=== PATIENT | male | born 1995 | race African-American/Black ===

== ENCOUNTER 2016-12-23 03:14 | Emergency (ER) | payer OTHER ==
[2016-12-23 03:38] VITALS: BP 161/90; PULSE 80; TEMP 98.9; BMI 48.4
[2016-12-23] MEDS ORDERED: SODIUM CHLORIDE 1,000 ML IV STA (04:17)
--- NOTE | 2016-12-23 04:24 | PDOC ---
History of Present Illness - General Chief Complaint: Weakness Stated Complaint: WEAKNESS, BLOOD SUGAR PROBLEM Time Seen by Provider: 12/23/16 04:04 History Source: Patient, Parent(s) (Father) Exam Limitations: No Limitations - History of Present Illness Initial Comments: 12/23/16 04:19 21yo Male patient w/ PmHx: DM, Asthma, Sleep apnea, presents to ED c/o weakness , mood changes for past couple months. Patient states he has not seen his PCP or checked his blood sugar in months. Patient father states patient is depressed , and has not left the house in months, he states patient is scared of social settings. Denies thoughts or verbalization of wanting to harm himself or anyone else. Past History - Travel Traveled outside of the country in the last 30 days: No Close contact w/someone who was outside of country & ill: No - Past Medical History Allergies/Adverse Reactions: Allergies Allergy/AdvReac Type Severity Reaction Status Date / Time No Known Allergies Allergy Verified 12/23/16 03:36 Home Medications: Ambulatory Orders Metformin HCl [Glucophage] 500 mg PO BID #60 tablet 07/06/16 Asthma: Yes Diabetes: Yes - Immunization History Immunization Up to Date: Yes - Psycho/Social/Smoking Cessation Hx Anxiety: No Suicidal Ideation: No Smoking History: Never smoked Have you smoked in the past 12 months: No Information on smoking cessation initiated: No Hx Alcohol Use: No Drug/Substance Use Hx: No Review of Systems - Review of Systems Able to Perform ROS?: Yes Is the patient limited Wallisian proficient: No Constitutional: No: Chills, Fever Respiratory: No: Cough, Shortness of Breath, Stridor, Wheezing Cardiac (ROS): No: Chest Pain, Edema, Lightheadedness, Palpitations, Syncope, Chest Tightness ABD/GI: No: Constipated, Diarrhea, Nausea, Poor Appetite, Poor Fluid Intake, Vomiting, Indigestion : No: Burning, Dysuria, Discharge, Frequency, Flank Pain, Hematuria, Pain Musculoskeletal: No: Back Pain, Muscle Pain, Muscle Weakness, Neck Pain Integumentary: No: Dryness, Erythema, Sweating Neurological: Yes: Weakness. No: Headache, Numbness, Paresthesia, Seizure, Tingling, Tremors, Unsteady Gait, Ataxia, Dizziness Psychiatric: Yes: Anxiety, Depression, Stressors, Mood Swings All Other Systems: Reviewed and Negative *Physical Exam - Vital Signs Last Vital Signs Temp Pulse Resp BP Pulse Ox 98.9 F 80 20 161/90 99 12/23/16 03:36 12/23/16 03:36 12/23/16 03:36 12/23/16 03:36 12/23/16 03:36 - Physical Exam General Appearance: Yes: Nourished, Appropriately Dressed. No: Apparent Distress, Mild Distress, Moderate Distress, Severe Distress Neck: positive: Trachea midline, Normal Thyroid, Supple. negative: Stridor, Lymphadenopathy (R), Lymphadenopathy (L) Respiratory/Chest: positive: Lungs Clear, Normal Breath Sounds. negative: Respiratory Distress, Accessory Muscle Use, Labored Respiration, Rapid RR Cardiovascular: positive: Regular Rhythm, Regular Rate. negative: Edema, JVD, Murmur Gastrointestinal/Abdominal: positive: Normal Bowel Sounds, Soft. negative: Distended, Guarding, Rebound, Tenderness Musculoskeletal: positive: Normal Inspection. negative: CVA Tenderness Extremity: positive: Normal Capillary Refill, Normal Inspection, Normal Range of Motion Integumentary: positive: Normal Color, Dry, Warm Neurologic: positive: parts product analyst II-XII NML intact, Fully Oriented, Alert, Normal Mood/ Affect, Normal Response, Motor Strength 5/5 ED Treatment Course - LABORATORY CBC & Chemistry Diagram: 12/23/16 04:31 12/23/16 04:31 *DC/Admit/Observation/Transfer Diagnosis at time of Disposition: Hyperglycemia due to type 2 diabetes mellitus Qualifiers: Diabetes mellitus exterminator helper insulin use: unspecified custodial insulin use status Qualified Code(s): E11.65 - Type 2 diabetes mellitus with hyperglycemia - Discharge Dispostion Disposition: HOME Condition at time of disposition: Stable Admit: No - Referrals Referrals: Yaneth Aguilar MD [Primary Care Provider] - Cristobal Yoder NP [Nurse Practitioner] - - Patient Instructions Printed Discharge Instructions: DI for Hyperglycemia -- Adult Additional Instructions: FOLLOW UP WITH DR. AGUILAR THIS WEEK FOR FURTHER EVALUATION. CALL TO SCHEDULE APPOINTMENT. TAKE YOUR MEDICATIONS PRESCRIBED. ALSO, FOLLOW UP WITH CRISTOBAL YODER (NURSE PRACTITIONER) IN PSYCHIATRY REGARDING DEPRESSION, ANXIETY, AND OTHER POSSIBLE UNDERLYING MENTAL HEALTH ISSUES. CALL TO SCHEDULE APPOINTMENT TO DISCUSS TREATMENT OPTIONS. CHECK YOUR BLOOD GLUCOSE THREE TIMES A DAY BEFORE EACH MEAL AND ONCE PRIOR TO BEDTIME. RETURN IF SYMPTOMS WORSEN OR ANY CONCERNS FOR FURTHER EVALUATION. Print Language: CHADIAN
[2016-12-23 04:55] LABS: URINE APPEARANCE CLEAR; URINE BILIRUBIN NEGATIVE (NEGATIVE); URINE BLOOD NEGATIVE (NEGATIVE); URINE COLOR LT. YELLOW; URINE GLUCOSE (UA) 3+ (NEGATIVE); URINE KETONE TRACE (NEGATIVE); URINE LEUK ESTERASE NEGATIVE (NEGATIVE); URINE NITRITE NEGATIVE (NEGATIVE); URINE PROTEIN NEGATIVE (NEGATIVE); URINE UROBILINOGEN 0.2 E.U/dl E.U./dl (0.2-1.0)
[2016-12-23 04:58] LABS: BASOPHIL 0.3 % (0-2.0); EOSINOPHIL 0.7 % (0-4.5); MCH 26.7 pg (25.7-33.7); MCHC 33.2 g/dl (32.0-35.9); MEAN CELL VOLUME 80.6 fl (80-96); MEAN PLT VOLUME 10.5 fl (7.5-11.1); NEUTROPHILS 59.6 % (42.8-82.8); PLATELET COUNT 160 K/MM3 (134-434); RDW 12.9 % (11.9-15.9); WHITE BLOOD COUNT 6.8 K/mm3 (4.0-10.0)
--- NOTE | 2016-12-23 05:16 | PDOC ---
*Physical Exam - Vital Signs Last Vital Signs Temp Pulse Resp BP Pulse Ox 98.9 F 80 20 161/90 99 12/23/16 03:36 12/23/16 03:36 12/23/16 03:36 12/23/16 03:36 12/23/16 03:36 ED Treatment Course - LABORATORY CBC & Chemistry Diagram: 12/23/16 04:31 12/23/16 04:31 - ADDITIONAL ORDERS Additional order review: Laboratory Results 12/23/16 04:31 Urine Color Lt. yellow Urine Appearance Clear Urine pH 6.0 Ur Specific Mchenry 1.010 Urine Protein Negative Urine Glucose (UA) 3+ H Urine Ketones Trace H Urine Blood Negative Urine Nitrite Negative Urine Bilirubin Negative Urine Urobilinogen 0.2 e.u/dl Ur Leukocyte Esterase Negative 12/23/16 04:31 RBC 5.86 H MCV 80.6 MCHC 33.2 RDW 12.9 MPV 10.5 Neutrophils % 59.6 Lymphocytes % 28.1 Monocytes % 11.3 H Eosinophils % 0.7 Basophils % 0.3 - Medications Given in the ED: ED Medications Discontinued Medications Generic Name Dose Route Start Last Admin Trade Name Freq PRN Reason Stop Dose Admin Sodium Chloride 1,000 mls @ 1,000 mls/hr 12/23/16 04:17 12/23/16 04:41 Normal Saline - IV 12/23/16 05:16 1,000 mls/hr ASDIR STA Administration Medical Decision Making - Medical Decision Making 12/23/16 05:16 agree with care from CECILIA Rivera *DC/Admit/Observation/Transfer Diagnosis at time of Disposition: Hyperglycemia due to type 2 diabetes mellitus - Referrals Referrals: Cristobal Whaley NP [Nurse Practitioner] - Yaneth Aguilar MD [Primary Care Provider] - - Patient Instructions Printed Discharge Instructions: DI for Hyperglycemia -- Adult Additional Instructions: FOLLOW UP WITH DR. AGUILAR THIS WEEK FOR FURTHER EVALUATION. CALL TO SCHEDULE APPOINTMENT. TAKE YOUR MEDICATIONS PRESCRIBED. ALSO, FOLLOW UP WITH CRISTOBAL WHALEY (NURSE PRACTITIONER) IN PSYCHIATRY REGARDING DEPRESSION, ANXIETY, AND OTHER POSSIBLE UNDERLYING MENTAL HEALTH ISSUES. CALL TO SCHEDULE APPOINTMENT TO DISCUSS TREATMENT OPTIONS. CHECK YOUR BLOOD GLUCOSE THREE TIMES A DAY BEFORE EACH MEAL AND ONCE PRIOR TO BEDTIME. RETURN IF SYMPTOMS WORSEN OR ANY CONCERNS FOR FURTHER EVALUATION. Print Language: ARMENIAN
[2016-12-23 05:41] LABS: ALBUMIN 3.9 g/dl (3.4-5.0); ANION GAP 9 (8-16); BILIRUBIN,TOTAL 0.4 mg/dL (0.2-1.0); CALCIUM 9.1 mg/dL (8.5-10.1); CO2 28 mmol/L (21-32); CREATININE 1.1 mg/dL (0.7-1.3); PHOSPHOROUS 2.4 mg/dL (2.5-4.9); SGPT/ALT 71 U/L (12-78); TOT PROT 7.4 g/dl (6.4-8.2)
[2016-12-23 05:49] LABS: ALK PHOS 122 U/L (45-117); THYROID STIMULATING HORMONE 1.09 uIU/ml (0.358-3.74)
[2016-12-23 05:55] LABS: MAGNESIUM 1.7 mg/dL (1.8-2.4)
[2016-12-23 05:56] LABS: GLUCOSE,RANDOM 366 mg/dL (74-106); SGOT/AST 32 U/L (15-37)
[2016-12-23 06:01] LABS: ACETONE SERUM NEGATIVE (NEGATIVE)
[2016-12-23] MEDS ORDERED: MAGNESIUM OXIDE 400 MG TABLET (FP) PO ONE (06:12)
[2016-12-23] MEDS ORDERED: INSULIN REGULAR HUMAN 100 UNITS/ML *VIAL SQ ONE (06:12)
[2016-12-23] MEDS ORDERED: INSULIN REGULAR HUMAN 100 UNITS/ML *VIAL ONE (06:24)
== END 2016-12-23 06:31 | disposition short-term general hospital (02) ==
LOC: JER 03:14
PROC: 3E013VG Introduction of Insulin into Subcutaneous Tissue, Percutaneous Approach (ICD-10-PCS; principal; 2016-12-23)
PROC: 3E0337Z Introduction of Electrolytic and Water Balance Substance into Peripheral Vein, Percutaneous Approach (ICD-10-PCS; 2016-12-23)
DX: E11.65 Type 2 diabetes mellitus with hyperglycemia (principal); F41.8 Other specified anxiety disorders; Z79.84 Long term (current) use of oral hypoglycemic drugs; J45.909 Unspecified asthma, uncomplicated
CPT/HCPCS: 36415; 80053; 81003; 82009; 83735; 84100; 84443; 85025; 96360; 96372; 99281-25

== ENCOUNTER 2017-08-28 02:19 | Emergency (ER) | payer OTHER ==
[2017-08-28 02:50] VITALS: BMI 40.9
--- NOTE | 2017-08-28 04:01 | PDOC ---
History of Present Illness - General Chief Complaint: Weakness Stated Complaint: WEAKNESS Time Seen by Provider: 08/28/17 03:31 History Source: Patient Exam Limitations: No Limitations - History of Present Illness Initial Comments: 08/28/17 03:59 21-year-old male with history of NIDDM, hypertension, asthma, sleep apnea, social anxiety, depression presents to the emergency department complaining of nausea for approximately 2 months patient states for the past 4 hours he's been polydipsia, polyphagia and polyuria. Patient states he's been nauseous because of social anxiety. Pt states he's been Today, patient states he feels weak and believes is due to his glucose. Patient has been noncompliant with his diabetes medication and he does not perform a fingerstick to find out his levels. Patient denies headache, dizziness, lightheadedness, visual disturbance, diplopia, facial pain, sore throat, cough, neck pains, back pains, chest pain, shortness of breath, abdominal pains, flank pains, urinary symptoms, extremity numbness or tingling sensation. Denies any suicidal/homicidal ideation/ tendencies Timing/Duration: other (x2 months) Past History - Past Medical History Allergies/Adverse Reactions: Allergies Allergy/AdvReac Type Severity Reaction Status Date / Time No Known Allergies Allergy Verified 08/28/17 02:44 Home Medications: Ambulatory Orders Metformin HCl [Glucophage] 1,000 mg PO BID 12/23/16 Asthma: Yes COPD: No Diabetes: Yes (niddm) Other medical history: sleep apnea - Immunization History Immunization Up to Date: Yes - Suicide/Smoking/Psychosocial Hx Smoking History: Never smoked Have you smoked in the past 12 months: No Hx Alcohol Use: No Drug/Substance Use Hx: No Review of Systems - Review of Systems Able to Perform ROS?: Yes Comments:: 08/28/17 04:00 CONSTITUTIONAL: Absent: fever, chills, diaphoresis, generalized weakness, malaise, loss of appetite HEENT: Absent: rhinorrhea, nasal congestion, throat pain, throat swelling, difficulty swallowing, mouth swelling, ear pain, eye pain, visual Changes CARDIOVASCULAR: Absent: chest pain, loss of consciousness, palpitations, irregular heart rate, peripheral edema RESPIRATORY: Absent: cough, shortness of breath, dyspnea with exertion, orthopnea, wheezing, stridor, hemoptysis GASTROINTESTINAL: +nausea Absent: abdominal pain, abdominal distension, vomiting, diarrhea, constipation , melena, hematochezia GENITOURINARY: Absent: dysuria, frequency, urgency, hesitancy, hematuria, flank pain, genital pain MUSCULOSKELETAL: Absent: myalgia, arthralgia, joint swelling SKIN: Absent: rash, itching, pallor HEMATOLOGIC/IMMUNOLOGIC: Absent: easy bleeding, easy bruising, lymphadenopathy, frequent infections ENDOCRINE: Absent: unexplained weight gain, unexplained weight loss, heat intolerance, cold intolerance NEUROLOGIC: Absent: headache, focal weakness or paresthesias, dizziness, unsteady gait, seizure, mental status changes, bladder or bowel incontinence PSYCHIATRIC: Absent: anxiety, depression, suicidal or homicidal ideation, hallucinations. Is the patient limited Telugu proficient: No *Physical Exam - Vital Signs Last Vital Signs Temp Pulse Resp BP Pulse Ox 97.9 F 131 H 20 163/96 98 08/28/17 02:41 08/28/17 02:41 08/28/17 02:41 08/28/17 02:41 08/28/17 02:41 - Physical Exam Comments: 08/28/17 04:01 GENERAL: Well developed, well nourished. Awake and alert. No acute distress. HEENT: Normocephalic, atraumatic. PERRLA, EOMI. No conjunctival pallor. Sclera are non- icteric. Moist mucous membranes. Oropharynx is clear. NECK: Supple. Full ROM. No JVD. Carotid pulses 2+ and symmetric, without bruits. No thyromegaly. No lymphadenopathy. CARDIOVASCULAR: Regular rate and rhythm. No murmurs, rubs, or gallops. Distal pulses are 2+ and symmetric. PULMONARY: No evidence of respiratory distress. Lungs clear to auscultation bilaterally. No wheezing, rales or rhonchi. ABDOMINAL: Soft. Non-tender. Non-distended. No rebound or guarding. No organomegaly. Normoactive bowel sounds. MUSCULOSKELETAL Normal range of motion at all joints. No bony deformities or tenderness. No CVA tenderness. EXTREMITIES: No cyanosis. No clubbing. No edema. No calf tenderness. SKIN: Warm and dry. Normal capillary refill. No rashes. No jaundice. NEUROLOGICAL: Alert, awake, appropriate. Cranial nerves 2-12 intact. No deficits to light touch and temperature in face, upper extremities and lower extremities. No motor deficits in the in face, upper extremities and lower extremities. Normoreflexic in the upper and lower extremities. Normal speech. Toes are down- going bilaterally. Gait is normal without ataxia. PSYCHIATRIC: Cooperative. Good eye contact. Appropriate mood and affect. ED Treatment Course - LABORATORY CBC & Chemistry Diagram: 08/28/17 04:00 08/28/17 05:12 *DC/Admit/Observation/Transfer Diagnosis at time of Disposition: Hyperglycemia due to type 2 diabetes mellitus Qualifiers: Diabetes mellitus equipment operator intermodal yard insulin use: unspecified equipment operator intermodal yard insulin use status Qualified Code(s): E11.65 - Type 2 diabetes mellitus with hyperglycemia - Referrals Referrals: Yaneth Armas MD [Primary Care Provider] - - Patient Instructions - Post Discharge Activity Progress Note - Progress Note Progress Note: 0700hrs: Signed out to BEVERLEY Alfaro
[2017-08-28] MEDS ORDERED: SODIUM CHLORIDE 1,000 ML IV STA (04:02)
[2017-08-28 04:18] LABS: BASOPHIL 0.8 % (0-2.0); EOSINOPHIL 0.9 % (0-4.5); MCH 26.6 pg (25.7-33.7); MCHC 33.5 g/dl (32.0-35.9); MEAN CELL VOLUME 79.5 fl (80-96); MEAN PLT VOLUME 10.2 fl (7.5-11.1); NEUTROPHILS 62.8 % (42.8-82.8); PLATELET COUNT 185 K/MM3 (134-434); RDW 13.2 % (11.9-15.9); WHITE BLOOD COUNT 8.3 K/mm3 (4.0-10.0)
[2017-08-28 05:56] LABS: ALBUMIN 3.3 g/dl (3.4-5.0); ALK PHOS 151 U/L (45-117); ANION GAP 4 (8-16); BILIRUBIN,TOTAL 0.3 mg/dL (0.2-1.0); CALCIUM 8.2 mg/dL (8.5-10.1); CO2 29 mmol/L (21-32); CREATININE 1.2 mg/dL (0.7-1.3); SGOT/AST 21 U/L (15-37); SGPT/ALT 56 U/L (12-78); TOT PROT 6.2 g/dl (6.4-8.2)
[2017-08-28 05:59] LABS: GLUCOSE,RANDOM 413 mg/dL (74-106)
[2017-08-28] MEDS ORDERED: INSULIN REGULAR HUMAN 100 UNITS/ML *VIAL IVPUSH ONE (06:01)
[2017-08-28] MEDS ORDERED: INSULIN REGULAR HUMAN 100 UNITS/ML *VIAL ONE (06:03)
--- NOTE | 2017-08-28 07:12 | PDOC ---
*Physical Exam - Vital Signs Last Vital Signs Temp Pulse Resp BP Pulse Ox 97.9 F 131 H 20 163/96 98 08/28/17 02:41 08/28/17 02:41 08/28/17 02:41 08/28/17 02:41 08/28/17 02:41 - Physical Exam General Appearance: Yes: Appropriately Dressed. No: Apparent Distress HEENT: positive: Normal Voice Neck: positive: Supple Respiratory/Chest: negative: Respiratory Distress Cardiovascular: positive: Regular Rate, S1, S2 Gastrointestinal/Abdominal: positive: Soft. negative: Tender Extremity: positive: Normal Inspection Integumentary: positive: Dry, Warm Neurologic: positive: Fully Oriented, Alert, Normal Mood/Affect ED Treatment Course - LABORATORY CBC & Chemistry Diagram: 08/28/17 04:00 08/28/17 05:12 - ADDITIONAL ORDERS Additional order review: Laboratory Results 08/28/17 08/28/17 05:12 04:00 Sodium 137 Cancelled Potassium 4.7 Cancelled Chloride 104 Cancelled Carbon Dioxide 29 Cancelled Anion Gap 4 L Cancelled BUN 11 Cancelled Creatinine 1.2 Cancelled Creat Clearance w eGFR > 60 Cancelled Random Glucose 413 H* Cancelled Calcium 8.2 L Cancelled Total Bilirubin 0.3 D Cancelled AST 21 D Cancelled ALT 56 D Cancelled Alkaline Phosphatase 151 H D Cancelled Total Protein 6.2 L Cancelled Albumin 3.3 L Cancelled 08/28/17 04:00 RBC 5.68 H MCV 79.5 L MCHC 33.5 RDW 13.2 MPV 10.2 Neutrophils % 62.8 Lymphocytes % 22.7 Monocytes % 12.8 H Eosinophils % 0.9 Basophils % 0.8 - Medications Given in the ED: ED Medications Discontinued Medications Generic Name Dose Route Start Last Admin Trade Name Freq PRN Reason Stop Dose Admin Sodium Chloride 1,000 mls @ 1,000 mls/hr 08/28/17 04:02 08/28/17 04:36 Normal Saline - IV 08/28/17 05:01 1,000 mls/hr ASDIR STA Administration Insulin Human Regular 4 units 08/28/17 06:01 08/28/17 06:08 Novolin R Vial *For Ivpush Or Iv Drip Only* IVPUSH 08/28/17 06:02 4 unit ONCE ONE Administration Medical Decision Making - Medical Decision Making 08/28/17 07:09 Pt signout at 7 AM Patient is a 21-year-old male, NIDDM, sleep apnea, hypertension, anxiety and depression, presents with hyperglycemia in the setting of medication noncompliance, possibly 2/2 depression per prior team. Fingerstick in the 400s w/ no gap. Despite 2 boluses of IVF, FS remains in the 400s. Has since been given 4 units of insulin w/ rpt FS pending. Regarding psychiatric issues, patient not on any medication and does not follow-up with psych. Denies any SI , HI and does not exhibit any sign or symptoms suggestive of psychosis at this time. If discharged, will encourage med compliance, f/u home hospice rn and also give psych referral 08/28/17 08:02 Rpt FS 305 w/ improvement in vitals. Pt reports feeling better at this time and requesting discharge. Had lengthy conversation with patient regarding his social anxiety and depression, which he feels is affecting his ability to take care of himself. Denies SI or HI. States he does have a psychiatrist and has been on different medications with no improvement. States symptoms significantly relieved when he smokes marijuana. I explained to patient that daily marijuana use in itself has been linked to mental illness and is not the best treatment for his psychiatric illness. States he would like to see a different psychiatrist. Will give referral to [facility]. Patient does not have an home hospice rn, but does have a primary care physician and states he will follow-up. States he does not need a refill on his medications and will start taking this medications as soon as he gets home. Reasons to return to ED discussed with patient *DC/Admit/Observation/Transfer Diagnosis at time of Disposition: Hyperglycemia due to type 2 diabetes mellitus Qualifiers: Diabetes mellitus care home insulin use: unspecified care home insulin use status Qualified Code(s): E11.65 - Type 2 diabetes mellitus with hyperglycemia - Discharge Dispostion Disposition: HOME Condition at time of disposition: Improved - Referrals Referrals: Yaneth Armas MD [Primary Care Provider] - Luisito De Paz MD [Staff Physician] - - Patient Instructions Printed Discharge Instructions: DI for Hyperglycemia -- Adult, Anxiety Disorders Additional Instructions: Please take your medications as prescribed and follow-up with your PMD next week Please follow-up with Dr. De Paz of psychiatry - Post Discharge Activity
[2017-08-28 07:29] VITALS: BP 140/80; PULSE 80; TEMP 98.3
== END 2017-08-28 08:11 | disposition home or self-care (01) ==
LOC: JER 02:19
PROC: 3E0337Z Introduction of Electrolytic and Water Balance Substance into Peripheral Vein, Percutaneous Approach (ICD-10-PCS; principal; 2017-08-28)
PROC: 3E033VG Introduction of Insulin into Peripheral Vein, Percutaneous Approach (ICD-10-PCS; 2017-08-28)
DX: E11.65 Type 2 diabetes mellitus with hyperglycemia (principal); Z79.84 Long term (current) use of oral hypoglycemic drugs; Z91.14 Patient's other noncompliance with medication regimen; I10 Essential (primary) hypertension; J45.909 Unspecified asthma, uncomplicated; G47.30 Sleep apnea, unspecified; F41.8 Other specified anxiety disorders
CPT/HCPCS: 36415; 80053; 85025; 96361; 96374; 99284-25

== ENCOUNTER 2019-03-28 16:00 | Emergency (ER) | payer OTHER ==
[2019-03-28] MEDS ORDERED: SODIUM CHLORIDE 1,000 ML IV STA (16:18)
--- NOTE | 2019-03-28 16:18 | PDOC ---
Rapid Medical Evaluation Chief Complaint: Blood Sugar Problem Time Seen by Provider: 03/28/19 16:13 Medical Evaluation: Allergies Allergy/AdvReac Type Severity Reaction Status Date / Time No Known Allergies Allergy Verified 08/28/17 02:44 03/28/19 16:15 Pt c/o: sent by PCP for elevated glucose of 360. Pt has not been taking meds as prescribed , (anxiety and depression) , no complaints Pt on brief exam: vss Pt ordered for: labs, urine, iv Pt to proceed to the ED Discharge Disposition - Diagnosis Elevated glucose level - Referrals Referrals: Yaneth Armas MD [Primary Care Provider] - - Patient Instructions - Post Discharge Activity
[2019-03-28 16:21] VITALS: BMI 48.4
--- NOTE | 2019-03-28 20:19 | PDOC ---
History of Present Illness - General Chief Complaint: Blood Sugar Problem Stated Complaint: BLOOD SUGAR PROBLEM Time Seen by Provider: 03/28/19 16:13 - History of Present Illness Initial Comments: Ted Richey is a 23yo man with a PMH of KAREN, asthma, depression/anxiety who was referred to the ED for workup due to a blood glucose of 360 on recent labs. He reports that he had not noticed any specific problems prior to seeing his doctor; he went for a scheduled appointment and bloodwork. He does endorse unusual fatigue, body aches, and unusual thirst, though he thought the thirst was due to the recent heat. Additionally, he reports frequent urination including overnight. Otherwise he has been feeling well, has no sick contacts, no abdominal pain, no vomiting, no change in bowel habits, no fever. He stopped using his CPAP at home due to discomfort. He has been taking his medications as prescribed and states they have not changed recently. Past History - Past Medical History Allergies/Adverse Reactions: Allergies Allergy/AdvReac Type Severity Reaction Status Date / Time No Known Allergies Allergy Verified 08/28/17 02:44 Home Medications: Ambulatory Orders Metformin HCl [Glucophage] 1,000 mg PO BID #30 tablet 03/28/19 Asthma: Yes COPD: No Diabetes: Yes - Immunization History Immunization Up to Date: Yes - Suicide/Smoking/Psychosocial Hx Smoking History: Never smoked Have you smoked in the past 12 months: No Information on smoking cessation initiated: No Hx Alcohol Use: No Drug/Substance Use Hx: No Review of Systems - Review of Systems Comments:: General: No fevers, no chills, no weight or appetite change, no malaise HEENT: No changes in vision, no changes in hearing, no congestion, no sore throat CV: No chest pain, no palpitations, no LE edema Pulm: No SOB, no cough, no wheezing GI: No nausea or vomiting, no change in bowel habits, no melena : + frequency, no urgency, no dysuria Musc: No back pain, no joint swelling, no recent injury Skin: No rash, no lesions, no erythema Endo: + excessive thirst, no heat/cold intolerance Heme: No unusual bruising or bleeding, no swollen glands Neuro: No syncope, no numbness/tingling, no focal weakness Vasc: No claudication Psych: No recent change in mood, no SI or HI *Physical Exam - Vital Signs Last Vital Signs Temp Pulse Resp BP Pulse Ox 98.2 F 109 H 16 161/91 99 03/28/19 16:14 03/28/19 16:14 03/28/19 16:14 03/28/19 16:14 03/28/19 16:14 - Physical Exam Comments: General: Comfortable, no acute distress HEENT: PERRL, EOMI, MMM, voice normal, normal neck ROM Cards: RRR, no murmur appreciated Pulm: Comfortable on room air, clear to auscultation bilaterally Abd: Soft, nontender, nondistended Ext: Atraumatic. No LE edema. ROM intact Vasc: Extremities WWP Skin: Normal color, no rashes or lesions Neuro: A&Ox3, CN grossly intact, normal speech, motor/sensory grossly intact and symmetric Psych: Mood appropriate to situation Medical Decision Making - Medical Decision Making 03/28/19 20:14 Ted Richey is a 23yo man with a PMH of KAREN, asthma, depression/anxiety who was sent to the ED by his PMD after hyperglycemia to 360 was noted on routine labs. He reports increased thirst and urination recently but has otherwise been asymptomatic. - Benign exam - Seen in E. CBC, CMP, mag, UA, VBG, fingerstick, IVF ordered. Have not yet been sent 03/28/19 20:43 - BGM 253 - Per chart review, Pt has been diagnosed with DM for several years. Discussed with Mr Richey, reports that he ran out of his meds a few months ago. States that he presented to the ED because he has been having some numbness in his fingers, which he says has resolved with IV fluids in the past. Requesting IVF bolus and refill on his meds - Will cancel labs as he is relative asymptomatic and glucose is under 300 - IVF, med refill, then d/c home to follow up with his PMD 03/28/19 20:55 - IVF started - Will give home metformin Seen with Dr Álvarez. Esthela Wilson PGY2 *DC/Admit/Observation/Transfer Diagnosis at time of Disposition: Elevated glucose level - Discharge Dispostion Disposition: HOME Condition at time of disposition: Stable Decision to Admit order: No - Prescriptions Prescriptions: Metformin HCl [Glucophage] 1,000 mg PO BID #30 tablet - Referrals Referrals: Yaneth Armas MD [Primary Care Provider] - - Patient Instructions Printed Discharge Instructions: DI for Hyperglycemia -- Adult Additional Instructions: Discharge Instructions: - You were seen in the ED with high blood sugar. This is most likely because you have not been taking your home medications recently - You were give IV fluids and metformin - Your prescription for metformin has been refilled. You indicated that you also take glipizide, but there is no record of this in the [facility] system. Please see your regular doctor, Dr Armas, as soon as possible for refills of your medications. - It is very important that you take your diabetes medications as prescribed. The numbness in your fingertips that you mentioned is caused by uncontrolled blood sugars, and this will only worsen over time if your glucose is not well controlled. - Call tomorrow morning to schedule the first available appointment with Dr Armas. You should also request medication refills. - Seek immediate medical care at the closest emergency department if you feel that you are having a medical emergency. - Post Discharge Activity
[2019-03-28] MEDS ORDERED: metFORMIN HCL 500 MG TABLET (FP) PO ONE (20:46)
--- NOTE | 2019-03-28 20:57 | PDOC ---
Documentation entered by Jadon Fagan SCRIBE, acting as scribe for Ivet Álvarez MD. Ivet Álvarez MD: This documentation has been prepared by the scribe, Jadon Fagan SCRIBE, under my direction and personally reviewed by me in its entirety. I confirm that the documentation accurately reflects all work, treatment, procedures, and medical decision making performed by me. Attending Attestation - Resident Resident Name: Esthela Wilson - ED Attending Attestation I have performed the following: I have examined & evaluated the patient, The case was reviewed & discussed with the resident, I agree w/resident's findings & plan, Exceptions are as noted - HPI HPI: 03/28/19 20:34 this 23-year-old male went to his doctor for routine lab work and his glucose is found to be 360 According to the patient ,he came because he wants IVF to help decrease his glucose. 03/28/19 20:46 - Physicial Exam PE: 03/28/19 20:47 wnwd 23 yo male with c/o high glucose,also he is not complaint with metformin and he has been having some tingling in his fingers head ncat neck supple lungs cta b/l cvs [id number] abd nontender extremiteis no deformities skin warm and dry neuro axox3,ambulatory,motor strength 5/5 b/l - Medical Decision Making 03/28/19 20:54 pt states he has not been complaint with his metformin for many months pt encouraged to take his medications and follow up with his PCP 03/28/19 20:56 imp NIDDM/med non compliance repeat [id number] 03/28/19 20:57
[2019-03-28 21:40] VITALS: BP 141/77; PULSE 82; TEMP 98.4
[2019-03-28] MEDS ORDERED: metFORMIN HCL 500 MG TABLET (FP) ONE (21:41)
== END 2019-03-28 21:49 | disposition home or self-care (01) ==
LOC: JER 16:00
PROC: 3E0337Z Introduction of Electrolytic and Water Balance Substance into Peripheral Vein, Percutaneous Approach (ICD-10-PCS; principal; 2019-03-28)
DX: E11.65 Type 2 diabetes mellitus with hyperglycemia (principal); G47.33 Obstructive sleep apnea (adult) (pediatric); J45.909 Unspecified asthma, uncomplicated; F41.8 Other specified anxiety disorders
CPT/HCPCS: 82962; 96360; 99281-25; J7030

== ENCOUNTER 2020-06-27 13:17 | Emergency (ER) | payer OTHER ==
[2020-06-27 13:37] VITALS: BP 166/103; PULSE 91; TEMP 98.2; BMI 41.5
[2020-06-27] MEDS ORDERED: AZITHROMYCIN 200 MG/5 ML BOTTLE PO ONE (13:57)
--- NOTE | 2020-06-27 14:04 | PDOC ---
History of Present Illness - General Chief Complaint: Rash Stated Complaint: SENT BY PCP Time Seen by Provider: 06/27/20 13:39 History Source: Patient Exam Limitations: No Limitations - History of Present Illness Initial Comments: 06/27/20 13:58 24 year-old male past medical history hypertension diabetes II presenting to the ED with penile irritation and discharge as well as dysuria. Patient states that he is sexually active with 2 partners 1 of them being new. Pt otherwise denies: fevers, chills, syncope, lightheadedness, dizziness, headaches, neck pain, chest pain, shortness of breath, palpitations, back pain, abdominal pain, nausea, vomiting, diarrhea, constipation. Past History - Medical History Allergies/Adverse Reactions: Allergies Allergy/AdvReac Type Severity Reaction Status Date / Time No Known Allergies Allergy Verified 06/27/20 13:30 Home Medications: Ambulatory Orders Metformin HCl [Glucophage] 1,000 mg PO BID #30 tablet 03/28/19 Clotrimazole [Itch Relief] 15 gm TP DAILY #1 cream..g. 06/27/20 Asthma: Yes COPD: No Diabetes: Yes HTN: Yes - Immunization History Immunization Up to Date: Yes - Psycho-Social/Smoking History Smoking History: Never smoked Have you smoked in the past 12 months: No - Substance Abuse Hx (Audit-C & DAST Scrn) How often the patient has a drink containing alcohol: Never Score: In Men: 4 or > Positive; In Women: 3 or > Positive: 0 Screen Result (Pos requires Nsg. Audit-10AR): Negative In the last yr the pt used illegal drug/Rx for NonMed reason: No Score: Yes response is considered Positive: 0 Screen Result (Positive result requires Nsg. DAST-10): Negative *Physical Exam - Vital Signs Last Vital Signs Temp Pulse Resp BP Pulse Ox 98.2 F 91 H 18 166/103 H 100 06/27/20 13:32 06/27/20 13:32 06/27/20 13:32 06/27/20 13:32 06/27/20 13:32 - Physical Exam 06/27/20 14:00 Gen: AAOx 3, no acute distress, comfortable, no signs of respiratory distress HENT: atraumatic, normocephalic with no laceration or contusion. Nasal mucosa without erythema. Oropharynx without erythema or exudates. Mucous membranes moist. EYES: PERRL, EOM intact, conjunctiva pink NECK: supple; trachea midline; no JVD, no lymphadenopathy, or thyromegaly CV: RRR no murmurs, gallops, or rubs. CHEST: CTA b/l no wheezing, rales or rhonchi ABD: +BS/ND. no TTP; soft, no rebound, no guarding GENITAL: Non-tender, non-edematous, circumcised penis with no discharge/bleeding from meatus, area of irritation around the glands penis consistent with balanitis, + non-tender, non-edematous b/l descended testes with b/l vertical lies; lesions/masses/crepitus/LAD; no inguinal hernia expressed EXTREMITY: no cyanosis or erythema. 2+ dorsalis pedis, posterior tibial, and radial pulse. No pedal edema; no calf swelling or tenderness SKIN: no rash, warm and dry, no diaphoresis HEME: no purpura or ecchymosis NEURO: normal speech, CN II-XII intact, sensation intact, normal gait, no cerebellar deficits MS: 5/5 strength in all extremities, FROM intact in all extremities. Medical Decision Making - Medical Decision Making 06/27/20 14:01 24 year old male with pmhx of DM II and HTN presenting with penile discharge and dysuria VSS except asymptomatic HTN Although no discharge seen on exam will treat patient prophalctically for GC since pt states he had discharge. Pt requesting HIV testing and was made aware he needs to wait for results and agrees Will obtain UA GC HIV and syphilis testing Will treat with azithro and ceftriaxone Will reassess based on results UA shows positive protein glucose ketones, negative for UTI, pt to follow up with PCP tmr or abi for diabetic management. HIV negative Pt appears well and is safe and stable for discharge with strict return pr ecautions including signs and symptoms requring immediate return to the ED Supportive care instructions explained and given to pt. Reasons to return emergently to ER explained and given. Importance of follow up with PMD and other specialists as indicated stressed to pt. Pt verbalized understanding of instructions. Pt to follow up with PMD in 2 days. Discharge - Discharge Information Problems reviewed: Yes Clinical Impression/Diagnosis: STD (male) Condition: Stable Disposition: HOME - Additional Discharge Information Prescriptions: Clotrimazole [Itch Relief] 15 gm TP DAILY #1 cream..g. - Follow up/Referral Referrals: Yaneth Armas MD [Primary Care Provider] - Abbe Cunningham MD [Staff Physician] - - Patient Discharge Instructions Patient Printed Discharge Instructions: Facts About Sexually Transmitted Infections Additional Instructions: please follow up with urology - Post Discharge Activity
[2020-06-27] MEDS ORDERED: AZITHROMYCIN 250 MG TABLET ONE (15:05)
--- OUTSIDE RECORDS SUMMARY | 2020-06-27 15:11 | XMS ---
:1995 Author Organization [facility] Care Team Providers Name Role Phone OYEKOLA MUSIC MIXER, MOBOLAJI Unavailable OYEKOLA MUSIC MIXER, MOBOLAJI Unavailable OYEKOLA MUSIC MIXER, MOBOLAJI Unavailable OYEKOLA MUSIC MIXER, MOBOLAJI Unavailable STEPHEN HUBER MD Unavailable Unavailable CANONICO Unavailable Unavailable Re-disclosure Warning The records that you are about to access may contain information from federally- assisted alcohol or drug abuse programs. If such information is present, then the following federally mandated warning applies: This information has been disclosed to you from records protected by federal confidentiality rules (42 CFR part 2). The federal rules prohibit you from making any further disclosure of this information unless further disclosure is expressly permitted by the written consent of the person to whom it pertains or as otherwise permitted by 42 CFR part 2. A general authorization for the release of medical or other information is NOT sufficient for this purpose. The Federal rules restrict any use of the information to criminally investigate or prosecute any alcohol or drug abuse patient.The records that you are about to access may contain highly sensitive health information, the redisclosure of which is protected by Article 27-F of the [facility] Public Health law. If you continue you may haveaccess to information: Regarding HIV / AIDS; Provided by facilities licensed or operated by the [facility] Office of Mental Health; or Provided by the [facility] Office for People With Developmental Disabilities. If such information is present, then the following [facility] mandated warning applies: This information has been disclosed to you from confidential records which are protected by state law. State law prohibits you from making any further disclosure of this information without the specific written consent of the person to whom it pertains, or as otherwise permitted by law. Any unauthorized further disclosure in violation of state law may result in a fine or alf sentence or both. A general authorization for the release of medical or other information is NOT sufficient authorization for further disclosure. Allergies and Adverse Reactions Type Description Substance Reaction Status Data Source(s ) Allergy to No Known Allergies No known DAJUAN WHITE ([place] substance allergies [facility] ([facility] ) Encounters Encounter Providers Location Date Indications Data Source(s ) Outpatient<td Attender: Brian 12/01/19 JUANITA (M ount ID="encounter [address] [facility] onID0">*OUTRE PM EDT - [facility] er) ACH*</td><td> 12/01/[address] 11:59:00 MUSIC MIXER</td><td>Y PM EDT [facility]</td><t d>12/01/2019< /td><td></td> Outpatient<td Attender: Brian 11/29/19 JUANITA (M ount ID[facility] [address] [facility] onID1">*No PM EDT - [facility]) Show*</td><td 11/29/19 >[address] 11:59:00 MUSIC MIXER</td><td>Y PM EDT [facility]</td><t d>11/29/2019< /td><td></td> Outpatient<td Attender: Brian 11/20/19 Obesity JUANITA (M ount ID="encounter [place] [address] MorbidHypertension Olya non TypeDescripti [facility] 02:30:00 (systemic) [facility] onID2">OFFICE PM EST - Health Cent er) VISIT</td><td 11/20/19 >SOHAIL [address] 03:40:36 MUSIC MIXER</td><td>Y PM EST [facility]</td><t d>11/20/2019< /td><td><cont ent ID="encounter DiagnosisID2- 0">Hypertensi on (systemic)</c ontent>, <content ID="encounter DiagnosisID2- 1">Obesity Morbid</breana nt></td> Obesity Morbid Hypertension (systemic) Outpatient Attender: STEPHEN TORRES 03/16/2019 12:49:00 S cameron HUBERAdmitter: VIOLA PM EDT - 04/18/2019 [facility] 03:16:00 PM EDT Patient discharged. Medications Medication Brand Start Product Dose Route Administrative Pharmacy [facility] Indications Reaction Description Data Name Date Form Instructions Instructions Source(s) Glipizide 5 glipiZ 11/19/ UNIT 1 active glipiZI DE JUANITA MG Oral ELOISE 2020 ([place] Tablet 5MG 12:00: [place] glipiZIDE Oral 00 AM [facility] 5MG Oral Tablet EST od Health Tablet Center) 24 HR buPROP 11/19/ UNIT 1 active buPROPion [place] Bupropion ion 2020 HCl ER (XL) (Mo unt Hydrochlori HCl ER 12:00: [place] on de 300 MG (XL) 00 AM [facility] Extended 300MG EST od Health Release Oral Center) Oral Tablet Tablet buPROPion Extend HCl ER (XL) ed 300MG Oral Releas Tablet e 24 Extended Hour Release 24 Hour Metformin metFOR 11/19/ UNIT 1 active metFORMIN JUANITA hydrochlori MIN 2020 HCl ([place] de 1000 MG HCl 12:00: [place] Oral Tablet 1000MG 00 AM [facility] metFORMIN Oral EST od Health HCl 1000MG Tablet Center) Oral Tablet Insurance Providers Payer name Policy type / Policy ID Covered Covered republican's Policy Plan Coverage type republican ID relationship to [place] Information galloway [facility] RN TRANSPLANT [id number] SP [id number] HIP - Health Individual 0 Self 0 [facility] RN TRANSPLANT [id number] SP [id number] SELF PAY 0000 Self 0000 MEDICAID OP [id number] Self [id number] [facility] HIP/UBA [id number] Self [id number] Problems, Conditions, and Diagnoses Code Display Name Description Problem Type Effective Data Sour ce(s) Dates 44278163 Sleep apnea Nonorganic Sleep Problem 11/20/2019 SULEMAN Y ([facility] (disorder) Apnea 12:00:00 AM [facility]) [id number] Anxiety Anxiety Disorder Problem 11/20/2019 JUANITA ([facility] disorder of Unknown (axis 12:00:00 AM [facility] (disorder) Iii) Etiology [facility]) Surgeries/Procedures Procedure Description Date Indications Data Source(s) No prior serious No prior serious 11/21/2019 SULEMAN Y ([facility] illness illness 12:00:00 AM [facility]) History of surgery History of surgery 11/21/2019 GRE BHAVIK ([facility] Tonsillectomy Tonsillectomy 12:00:00 AM [facility]) Bmi is documented BMI > NORMAL 11/20/2019 JUANITA ([facility] above normal DOCUMENTED W F/U PLAN 12:00:00 AM [facility] er) follow-up plan is documented Results ID Date Data Source [id number] 12/01/2019 05:31:23 PM EDT SULEMAN Anthony ([place] [id number] [facility]) Name Value Range Interpretation Description Data Source(s ) Supporting Code Document(s ) No Results No Results No Results JUANITA ([facility] Recorded For [facility]) Procedure Social History Code Duration Value Status Description Data Source(s ) Smoking 11/21/2019 Never smoked completed Never smoked [place] ( [facility] 01:44:26 PM [facility] tobacco tobacco (finding) Ve rnon [facility] ([facility]) [facility] [place]) Vital Signs ID Date Data Source UNK Name Value Range Interpretation Code Description Data Source(s) Heart rate 83 /min 83 /min JUANITA ([facility]) Diastolic blood 95 mm[Hg] 95 mm[Hg] JUANITA ([facility]) Systolic blood 153 mm[Hg] 153 mm[Hg] JUANITA ( [facility]) PhenX - pain, 3 3 JUANITA (M ount abdominal - type [facility] er) protocol Patient is here to do an std testing. Body surface area Derived from 2.15 m2 2.15 m2 [place] ([facility]) Patient is here to do an std testing. Body mass index (BMI) 40.3 kg/m2 40.3 kg/m2 [place] ([place] [Ratio] [facility]) Patient is here to do an std testing. Body weight 242.391885 [lb_av] 242.600119 [lb_a v] [place] ([facility]) Patient is here to do an std testing. Body height 65 [in_us] 65 [in_us] [place] ([facility]) Patient is here to do an std testing. Body temperature 98.4 [degF] 98.4 [degF] [facility] [place] ([facility]) Patient is here to do an std testing. Heart rate rhythm 1 1 [place] ([facility]) Patient is here to do an std testing. Heart rate 86 /min 86 /min [place] ([facility]) Patient is here to do an std testing. Diastolic blood pressure 109 mm[Hg] 109 mm[Hg] [place] ([facility]) Patient is here to do an std testing. Systolic blood pressure 153 mm[Hg] 153 mm[Hg] [place] ([facility]) Patient is here to do an std testing.
[2020-06-27 15:15] LABS: EPI CELLS 10 /uL (0-25.1); HYALINE CASTS 1 /uL (0-3.1); URINE APPEARANCE CLEAR; URINE BACTERIA 90 /uL (0-1359); URINE BILIRUBIN NEGATIVE (NEGATIVE); URINE COLOR YELLOW; URINE GLUCOSE (UA) 3+ (NEGATIVE); URINE KETONE 1+ (NEGATIVE); URINE LEUK ESTERASE NEGATIVE (NEGATIVE); URINE NITRITE NEGATIVE (NEGATIVE); URINE PROTEIN 2+ (NEGATIVE); URINE RBC 18 /uL (0-23.9); URINE UROBILINOGEN 0.2 mg/dL (0.2-1.0); URINE WBC 13 /uL (0-25.8)
== END 2020-06-27 20:05 | disposition home or self-care (01) ==
LOC: JERFT 13:17
DX: A64 Unspecified sexually transmitted disease (principal); Z11.3 Encounter for screening for infections with a predominantly sexual mode of transmission
CPT/HCPCS: 36415; 81003; 86780; 87389; 87491; 87591; 99284-25